=== PATIENT | female | born 1955 | race Caucasian/White ===

== ENCOUNTER 2024-10-16 06:20 | Day surgery (SDC) | payer MEDICARE, OTHER, SELFPAY ==
[2024-10-03 13:50] VITALS: BMI 25.3
--- NOTE | 2024-10-10 15:32 | PTCARENOTE ---
Patients 10/03 GFR 49.31- Ayah @ Dr. Link office notified
[2024-10-16] VITALS (9 sets, daily range): BP systolic 115–134; BP diastolic 61–71; BMI 25.3
--- NOTE | 2024-10-16 07:08 | HP.FOC2 ---
Focused History & Physical
Chief Complaint
HPI:
Chief Complaint: Biliary dyskinesia
HPI / Indication for Planned Procedure: Patient is a 69-year-old female with a history of postprandial right upper quadrant abdominal pain rating to the back and scapular area with intermittent nausea vomiting diarrhea. GI evaluation including
endoscopy was unremarkable. Ultrasound negative for gallstones or other structural pathology. Subsequent CCK HIDA showed reduced ejection fraction. Patient presents for cholecystectomy today in the setting of presumed biliary
dyskinesia/functional disorder of the gallbladder.
Relevant Past Medical History: Other (Nephrolithiasis, left kidney cyst, migraines, cataracts, sleep apnea on CPAP, reactive airway disease, GERD, IBS)
Relevant Social History: Negative
Relevant Family History: Negative
Relevant Past Surgical History: Positive for (LAVH/BSO, appendectomy, tonsils, sinus surgery)
Review of Systems
Review of Pertinent Systems: All Systems Negative
Medication
See Medication form for detailed medications: Yes
Medication List (including Herbals & OTC):
omeprazole 40 mg capsule,delayed release 40 mg PO BID 10/11/13
propranolol 80 mg capsule,extended release 24 hr (Inderal XL) 80 mg PO BID 10/11/13
acetaminophen 500 mg tablet (Tylenol Extra Strength) 1,000 mg PO Q6HPRN PRN jaramillo 01/20/15
L.acidoph,paracasei,B.animalis 10 billion cell capsule 1 ea PO DAILY 09/06/17
Magnesium 2 cap PO HS 09/06/17
Nelimed Sinus Rinse 1 dose intranasal BID 10/09/24
albuterol sulfate 90 mcg/actuation aerosol inhaler 2 puff inhalation Q6H PRN cough 10/09/24
benzonatate 200 mg capsule 200 mg PO BID PRN cough 10/09/24
calcium 1 dose PO DAILY 10/09/24
cetirizine 10 mg tablet (Zyrtec) 10 mg PO DAILY 10/09/24
cholecalciferol (vitamin D3) 25 mcg (1,000 unit) tablet (Vitamin D3) 25 mcg PO DAILY 10/09/24
cranberry 500 mg capsule 500 mg PO DAILY 10/09/24
famotidine 40 mg tablet 40 mg PO DAILY 10/09/24
fesoterodine 8 mg tablet,extended release 24 hr (Toviaz) 8 mg PO DAILY 10/09/24
fluticasone furoate 100 mcg/actuation blister powder for inhalation (Arnuity Ellipta) 1 inh inhalation DAILY 10/09/24
guar gum 1 tbsp PO DAILY 10/09/24
ipratropium bromide 21 mcg (0.03 %) nasal spray 2 spray intranasal TID 10/09/24
losartan 25 mg tablet 25 mg PO DAILY 10/09/24
meclizine 25 mg tablet 25 mg PO TID PRN vertigo 10/09/24
montelukast 10 mg tablet 10 mg PO DAILY 10/09/24
ubrogepant 100 mg tablet (Ubrelvy) 100 mg PO ONCE PRN migraine 10/09/24
vitamin S99-cywsb acid 1 dose PO DAILY 10/09/24
vitamin B6 1.7 mg-cyanocobalamin 2.4 mcg-herbs tablet 1 tab PO DAILY 10/09/24
Medications Reviewed: Yes
Allergies and Reactions
Patient has Allergies: Yes
Noted Allergies and Reactions:
Allergy/AdvReac Type Severity Reaction Status Date / Time
Sulfa (Sulfonamide Allergy Intermediate Hives Verified 10/09/24 09:54
Antibiotics)
amoxicillin trihydrate (From Allergy Mild Unknown Verified 10/09/24 09:54
Augmentin)
potassium clavulanate (From Allergy Mild Unknown Verified 10/09/24 09:54
Augmentin)
epinephrine Allergy Unknown Verified 10/09/24 09:54
nitrofurantoin Allergy Hives Verified 10/09/24 09:54
macrocrystalline (From
Macrodantin)
Pertinent Physical Exam
All Other Systems: Negative
Head/Neck: Normal
Lungs: Normal
Heart: Normal
Abdomen: Normal
Extremities: Normal
Neurological: Normal
Diagnosis / Assessment
69-year-old female presenting for cholecystectomy for management of presumed biliary dyskinesia/functional disorder of the gallbladder
Plan / Procedure
Laparoscopic cholecystectomy with intraoperative cholangiogram
Anesthesia/Sedation to be done by Anesthesia Provider: Yes
--- NOTE | 2024-10-16 07:10 | W.SUR.PREOP ---
Pre-Operative Surgical Note
-
I have examined this patient prior to the performance of the scheduled procedure.
The patient's condition is unchanged from the time of the current History and
Physical and the patient is able to undergo the scheduled procedure.
[2024-10-16] MEDS: NORMOSOL-R/PLASMALYTE-A 1000 IV (07:54)
[2024-10-16] MEDS: TYLENOL 1000 MG PO (07:54)
[2024-10-16] MEDS: TRANSDERM-SCOP 1 PATCH TRANSDERM (08:14)
--- NOTE | 2024-10-16 10:21 | W.IMMPOSTOP ---
Addendum entered and electronically signed by Phillip Constantino MD 10/16/24 10:29:
#[id number]
Original Note:
Surgical Immed Post Op Note
-
Primary Surgeon: Phillip Constantino MD
Assisting Surgeon: Eliana Sow MD, PGY 1
Pre-op Diagnosis: Functional disorder the gallbladder; biliary dyskinesia
Post-op Diagnosis: Functional disorder of the gallbladder; suspected chronic cholecystitis
Procedure Performed: Laparoscopic cholecystectomy with intraoperative cholangiogram
Anesthesia Type: GETA +0.25% Marcaine
Specimen / Cultures: Gallbladder
Estimated Blood Loss: 4 mL
Complications: None immediate
Operative Findings: Physiologically distended gallbladder with filmy omental adhesions from the body through infundibulum. Normal intraoperative cholangiogram. Cystic duct and artery individually controlled with clips. Gallbladder removed off
liver bed intact.
[2024-10-16] MEDS: ZOFRAN 4 MG IV (10:54)
[2024-10-16] MEDS: DILAUDID 0.5 MG IV (10:56)
== END 2024-10-16 12:59 | disposition home or self-care (01) ==
LOC: SDS 06:20
PROVIDERS: ATTENDING PHYSICIAN Surgery; FAMILY PHYSICIAN Family Medicine
DX: K82.8 Other specified diseases of gallbladder (principal)
CPT/HCPCS: 47563; 88304; 74300; 76000; A4300

== ENCOUNTER → 2025-01-09 13:51 | Outpatient (REF) | payer MEDICARE, OTHER, SELFPAY | LOC: RAD 13:51 | PROVIDERS: ATTENDING PHYSICIAN Nurse Practitioner Family; FAMILY PHYSICIAN Family Medicine | DX: R05.1 Acute cough (principal); R50.9 Fever, unspecified | CPT/HCPCS: 71046 ==